=== PATIENT | female | born 1965 | race African-American/Black ===

== ENCOUNTER 2017-04-13 05:12 | Inpatient (IN) | payer MEDICAID ==
[~2017-04-13] VITALS: Ht 170.2 cm; Wt 89.1 kg
--- NOTE | ~2017-04-13 | EC ---
PATIENT:NAREN HAQUE DATE OF SERVICE: 04/13/17 SEX: F MEDICAL RECORD: [id number] DATE OF : [birth year] LOCATION:[facility] [address] AGE OF PATIENT: 51 ADMISSION DATE: 04/13/17 REFERRING PHYSICIAN: INTERPRETING PHYSICIAN: ASHLEY ARNOLD MD ECHOCARDIOGRAM REPORT ECHO CHARGES 4 ECHO COMPLETE CLINICAL DIAGNOSIS: CANDIDEMIA ECHOCARDIOGRAPHIC MEASUREMENTS (adult normal given) AC root (d.<3.7cm) 3.4 cm LV Septum d (<1.2 cm> 1.0 cm Valve Excursion 2.1 cm LV Septum (systole) 1.6 cm Left Atria (s.<4.0cm> 2.7 cm LVPW d(<1.2cm) 1.1 cm RV (d.<2.3cm) 2.7 cm LVPW (sytole) 2.0 cm LV diastole(<5.6CM) 4.9 cm MV E-F(>70mm/sec) cm LV systole 3.4 cm LVOT Diameter 1.9 cm MV exc.(>10mm) cm Est.ejection fraction (50-75%) % Pericardial Effusion N DOPPLER: LVIT cm/sec A 135 cm/sec E 79.0 cm/sec LA cm/sec RVSP mmHg LVOT 137 cm/sec AOP1/2T m/s Asc. Ao 173 cm/sec RVOT 72.0 cm/sec RA cm/sec PA 121 cm/sec AV Gradient Peak 12.0 mmHg AV Mean 6.4 mmHg AV Area 1.8 cm MV Gradient Peak 7.2 mmHg MV Mean 2.9 mmHg MV Area cm COMMENTS: Grinder Hardboard: 1 JULIO BLUFFTON Electrical Repairer: 4 Dr. Arnold TAPE# PACS DATE OF SERVICE: 04/16/2017 FINDINGS: 1. Left ventricle shows evidence of mild left ventricular hypertrophy. Ejection fraction is 55%. 2. The right atrium is normal size and normal function. 3. The left atrium is normal size and normal function. 4. The aortic valve is normal. 5. The mitral valve is normal. 6. The tricuspid valve is normal. ECHOCARDIOGRAM REPORT [id number] NAREN HAQUE 7. The pericardium is normal. 8. Pulmonic valve is grossly normal. 9. The right atrium is normal. CONCLUSION: The patient has a normal echocardiogram. There is no obvious vegetation or thrombus seen, but the endocardial surfaces were not well visualized. TRANSINT:[id number] Voice Confirmation ID: [id number] DOCUMENT ID: [id number] 04/23/2017 Edited to correct date of service, dmm. ASHLEY ARNOLD MD at 0942 CC: [id number] DICTATION DATE: 04/17/17 0749 LIVESTOCK SLAUGHTERER: 04/17/17 0803 ADM IN [place] [id number] [place] [address]
[2017-04-13 05:38] VITALS: BP 151/84; BMI 37.5
[2017-04-13 06:12] LABS: BASOPHILS 0.2 % (0-2); EOSINOPHILS 2.7 % (0-7); HEMATOCRIT 29.3 % (36.0-48.0); HEMOGLOBIN 9.5 g/dL (12-16); IMMATURE GRANULOCYTES 0.8 % (0-5); MCH 28.8 pg (26.0-34.0); MCHC 32.4 g/dL (31.0-37.0); MCV 88.8 fL (80.0-100.0); MEAN PLATELET VOLUME 10.5 fL (7.4-10.4); MONOCYTES 7.2 % (2-11); NEUTROPHILS 67.1 % (40-80); PLATELET COUNT 403 10x3/uL (130-400); RDW 14.8 % (11.5-14.5); WBC 12.4 10x3/uL (4.8-10.8)
[2017-04-13 06:30] LABS: ALBUMIN 2.7 g/dL (3.4-5.0); ALKALINE PHOSPHATASE 91 U/L (46-116); ALT (SGPT) 81 U/L (10-68); BILIRUBIN - TOTAL 0.57 mg/dL (0.2-1.3); CALC OSMOLALITY 280 mosm/kg (275-300); CALCIUM 9.1 mg/dL (8.5-10.1); CARBON DIOXIDE 25.8 mmol/L (21.0-32.0); CHLORIDE - SERUM 104 mmol/L (98-107); CREATININE - SERUM 0.7 mg/dL (0.6-1.3); GLUCOSE 100 mg/dL (74-106); MAGNESIUM - SERUM 1.8 mg/dL (1.8-2.4); PHOSPHOROUS 2.9 mg/dL (2.5-4.9); POTASSIUM - SERUM 4.2 mmol/L (3.5-5.1); PROTEIN - SERUM 7.2 g/dL (6.4-8.2); SODIUM 139 mmol/L (136-145); UREA NITROGEN 20 mg/dL (7-18); eGFR NON AFRICAN AMERICAN > 90 mL/min (90-120)
[2017-04-13] MEDS ORDERED: ZOLOFT50 MG PO (09:06)
[2017-04-13] MEDS ORDERED: CATAPRES0.2 MG PO (09:07)
[2017-04-13] MEDS ORDERED: TRAZODONE HCL50 MG PO (09:15)
[2017-04-13] MEDS ORDERED: VALIUM 2 MG TAB2 MG PO (09:16)
[2017-04-13] MEDS ORDERED: IBUPROFEN800 MG PO (09:17)
[2017-04-13] MEDS ORDERED: ARICEPT10 MG PO (09:17)
[2017-04-13] MEDS ORDERED: FERROUS SULFAT325 MG PO (09:18)
[2017-04-13] MEDS ORDERED: NIFEDIPINE ER60 MG PO (09:18)
[2017-04-13] MEDS ORDERED: COZAAR100 MG PO (09:19)
[2017-04-13 11:48] LABS: APPEARANCE HAZY (CLEAR); BILIRUBIN NEGATIVE (NEGATIVE); COLOR YELLOW (YELLOW); GLUCOSE NEGATIVE (NEGATIVE); KETONE NEGATIVE (NEGATIVE); NITRITE NEGATIVE (NEGATIVE); PROTEIN 2+ mg/dL (NEGATIVE); UROBILINOGEN NORMAL (NORMAL)
[2017-04-13 11:49] LABS: WHITE CELLS - URINE 0-5 /hpf (0-5)
[2017-04-13 11:50] LABS: BACTERIA MODERATE /hpf (NONE SEEN); EPITHELIAL CELLS 0-5 /hpf (0-5); MUCUS <1+ /lpf (NONE SEEN)
[2017-04-13 12:23] VITALS: BP 122/93
[2017-04-13 16:11] VITALS: BP 116/74
[2017-04-13 20:00] VITALS: BP 118/72
[2017-04-14] VITALS: BP 126/76
[2017-04-14 04:00] VITALS: BP 140/87
[2017-04-14 06:26] LABS: BASOPHILS 0.3 % (0-2); EOSINOPHILS 3.4 % (0-7); HEMOGLOBIN 9.1 g/dL (12-16); IMMATURE GRANULOCYTES 1.4 % (0-5); LYMPHOCYTES 22.7 % (15-50); MCH 29.4 pg (26.0-34.0); MCHC 32.5 g/dL (31.0-37.0); MCV 90.3 fL (80.0-100.0); MEAN PLATELET VOLUME 10.2 fL (7.4-10.4); MONOCYTES 8.6 % (2-11); NEUTROPHILS 63.6 % (40-80); PLATELET COUNT 435 10x3/uL (130-400); WBC 10.6 10x3/uL (4.8-10.8)
[2017-04-14 07:03] LABS: ALBUMIN 2.6 g/dL (3.4-5.0); ALKALINE PHOSPHATASE 83 U/L (46-116); ALT (SGPT) 74 U/L (10-68); CALC OSMOLALITY 279 mosm/kg (275-300); CALCIUM 8.9 mg/dL (8.5-10.1); CARBON DIOXIDE 27.6 mmol/L (21.0-32.0); CHLORIDE - SERUM 103 mmol/L (98-107); CREATININE - SERUM 0.8 mg/dL (0.6-1.3); GLUCOSE 86 mg/dL (74-106); PROTEIN - SERUM 7.2 g/dL (6.4-8.2); SODIUM 139 mmol/L (136-145); UREA NITROGEN 20 mg/dL (7-18); eGFR NON AFRICAN AMERICAN 79 mL/min (90-120)
[2017-04-14 08:04] VITALS: BP 127/67
[2017-04-14 12:11] VITALS: BP 134/94
[2017-04-14 15:14] VITALS: BMI 37.4
[2017-04-14 16:24] VITALS: BP 111/79
[2017-04-14 22:08] VITALS: BP 99/73
[2017-04-15 04:55] VITALS: BP 115/92
[2017-04-15 07:02] LABS: ALBUMIN 2.7 g/dL (3.4-5.0); ALKALINE PHOSPHATASE 82 U/L (46-116); ALT (SGPT) 74 U/L (10-68); CALC OSMOLALITY 279 mosm/kg (275-300); CALCIUM 8.7 mg/dL (8.5-10.1); CARBON DIOXIDE 23.1 mmol/L (21.0-32.0); CHLORIDE - SERUM 104 mmol/L (98-107); CREATININE - SERUM 0.8 mg/dL (0.6-1.3); GLUCOSE 113 mg/dL (74-106); POTASSIUM - SERUM 4.3 mmol/L (3.5-5.1); PROTEIN - SERUM 7.1 g/dL (6.4-8.2); SODIUM 138 mmol/L (136-145); UREA NITROGEN 22 mg/dL (7-18); eGFR NON AFRICAN AMERICAN 79 mL/min (90-120)
[2017-04-15 07:12] LABS: BASOPHILS 0.4 % (0-2); EOSINOPHILS 3.8 % (0-7); HEMATOCRIT 30.2 % (36.0-48.0); HEMOGLOBIN 9.7 g/dL (12-16); IMMATURE GRANULOCYTES 2.3 % (0-5); LYMPHOCYTES 16.2 % (15-50); MCH 29.2 pg (26.0-34.0); MCHC 32.1 g/dL (31.0-37.0); MEAN PLATELET VOLUME 10.1 fL (7.4-10.4); MONOCYTES 7.7 % (2-11); NEUTROPHILS 69.6 % (40-80); PLATELET COUNT 502 10x3/uL (130-400); RBC 3.32 10x6/uL (4.00-5.40); RDW 15.2 % (11.5-14.5); WBC 11.2 10x3/uL (4.8-10.8)
[2017-04-15 08:34] VITALS: BP 101/70
[2017-04-15 12:29] VITALS: BP 106/72
[2017-04-15 15:52] VITALS: BP 115/88
[2017-04-15 22:11] VITALS: BP 116/72
[2017-04-16 01:48] VITALS: BP 110/65
[2017-04-16 05:29] VITALS: BP 143/89
[2017-04-16 06:20] LABS: BASOPHILS 0.3 % (0-2); EOSINOPHILS 3.6 % (0-7); HEMATOCRIT 31.2 % (36.0-48.0); HEMOGLOBIN 9.9 g/dL (12-16); IMMATURE GRANULOCYTES 3.6 % (0-5); LYMPHOCYTES 16.8 % (15-50); MCH 29.3 pg (26.0-34.0); MCHC 31.7 g/dL (31.0-37.0); MCV 92.3 fL (80.0-100.0); MEAN PLATELET VOLUME 9.9 fL (7.4-10.4); MONOCYTES 7.3 % (2-11); NEUTROPHILS 68.4 % (40-80); PLATELET COUNT 513 10x3/uL (130-400); RBC 3.38 10x6/uL (4.00-5.40); RDW 16.1 % (11.5-14.5); WBC 9.7 10x3/uL (4.8-10.8)
[2017-04-16 06:41] LABS: ALKALINE PHOSPHATASE 96 U/L (46-116); ALT (SGPT) 67 U/L (10-68); CALC OSMOLALITY 283 mosm/kg (275-300); CALCIUM 9.3 mg/dL (8.5-10.1); CARBON DIOXIDE 24.8 mmol/L (21.0-32.0); CHLORIDE - SERUM 106 mmol/L (98-107); CREATININE - SERUM 0.7 mg/dL (0.6-1.3); GLUCOSE 124 mg/dL (74-106); POTASSIUM - SERUM 4.1 mmol/L (3.5-5.1); SODIUM 140 mmol/L (136-145); UREA NITROGEN 23 mg/dL (7-18); eGFR NON AFRICAN AMERICAN > 90 mL/min (90-120)
[2017-04-16 08:34] VITALS: BP 132/82
[2017-04-16 12:08] VITALS: BP 99/56
[2017-04-16 15:49] VITALS: BP 114/68
[2017-04-16 22:19] VITALS: BP 114/77
[2017-04-17 02:32] VITALS: BP 132/82
[2017-04-17 04:40] VITALS: BP 133/83
[2017-04-17 05:51] LABS: ALBUMIN 2.8 g/dL (3.4-5.0); ALKALINE PHOSPHATASE 88 U/L (46-116); ALT (SGPT) 65 U/L (10-68); CALC OSMOLALITY 279 mosm/kg (275-300); CALCIUM 8.7 mg/dL (8.5-10.1); CARBON DIOXIDE 24.6 mmol/L (21.0-32.0); CHLORIDE - SERUM 104 mmol/L (98-107); CREATININE - SERUM 0.6 mg/dL (0.6-1.3); GLUCOSE 118 mg/dL (74-106); POTASSIUM - SERUM 3.6 mmol/L (3.5-5.1); PROTEIN - SERUM 7.2 g/dL (6.4-8.2); SODIUM 138 mmol/L (136-145); UREA NITROGEN 20 mg/dL (7-18); eGFR NON AFRICAN AMERICAN > 90 mL/min (90-120)
[2017-04-17 05:52] LABS: BASOPHILS 0.3 % (0-2); EOSINOPHILS 4.4 % (0-7); HEMATOCRIT 30.5 % (36.0-48.0); HEMOGLOBIN 9.8 g/dL (12-16); IMMATURE GRANULOCYTES 3.2 % (0-5); LYMPHOCYTES 16.8 % (15-50); MCH 29.1 pg (26.0-34.0); MCHC 32.1 g/dL (31.0-37.0); MCV 90.5 fL (80.0-100.0); MEAN PLATELET VOLUME 10.5 fL (7.4-10.4); MONOCYTES 7.5 % (2-11); NEUTROPHILS 67.8 % (40-80); PLATELET COUNT 418 10x3/uL (130-400); RBC 3.37 10x6/uL (4.00-5.40); RDW 16.1 % (11.5-14.5); WBC 11.7 10x3/uL (4.8-10.8)
[2017-04-17 09:58] VITALS: BP 129/69
[2017-04-17 12:49] VITALS: BP 134/88
[2017-04-17 15:57] VITALS: BP 116/72
[2017-04-17 21:58] VITALS: BP 124/66
[2017-04-18 00:11] VITALS: BP 124/64
[2017-04-18 05:03] LABS: BASOPHILS 0.3 % (0-2); EOSINOPHILS 3.2 % (0-7); HEMATOCRIT 27.2 % (36.0-48.0); HEMOGLOBIN 9.5 g/dL (12-16); IMMATURE GRANULOCYTES 1.7 % (0-5); LYMPHOCYTES 16.2 % (15-50); MCHC 34.9 g/dL (31.0-37.0); MCV 91.6 fL (80.0-100.0); MONOCYTES 7.2 % (2-11); NEUTROPHILS 71.4 % (40-80); PLATELET COUNT 438 10x3/uL (130-400); RBC 2.97 10x6/uL (4.00-5.40); RDW 16.4 % (11.5-14.5); WBC 13.9 10x3/uL (4.8-10.8)
[2017-04-18 05:16] VITALS: BP 132/54
[2017-04-18 05:23] LABS: ALBUMIN 2.6 g/dL (3.4-5.0); ALKALINE PHOSPHATASE 86 U/L (46-116); ALT (SGPT) 65 U/L (10-68); BILIRUBIN - TOTAL 0.32 mg/dL (0.2-1.3); CALC OSMOLALITY 273 mosm/kg (275-300); CALCIUM 8.7 mg/dL (8.5-10.1); CARBON DIOXIDE 21.5 mmol/L (21.0-32.0); CHLORIDE - SERUM 104 mmol/L (98-107); CREATININE - SERUM 0.6 mg/dL (0.6-1.3); GLUCOSE 96 mg/dL (74-106); POTASSIUM - SERUM 4.1 mmol/L (3.5-5.1); PROTEIN - SERUM 7.1 g/dL (6.4-8.2); SODIUM 136 mmol/L (136-145); UREA NITROGEN 18 mg/dL (7-18); eGFR NON AFRICAN AMERICAN > 90 mL/min (90-120)
[2017-04-18 08:39] VITALS: BP 99/70
[2017-04-18 13:14] VITALS: BP 102/75
[2017-04-18 16:48] VITALS: BP 110/70
[2017-04-18 18:36] LABS: APPEARANCE CLEAR (CLEAR); BILIRUBIN NEGATIVE (NEGATIVE); COLOR YELLOW (YELLOW); GLUCOSE NEGATIVE (NEGATIVE); KETONE NEGATIVE (NEGATIVE); NITRITE NEGATIVE (NEGATIVE); PROTEIN TRACE mg/dL (NEGATIVE); UROBILINOGEN NORMAL (NORMAL)
[2017-04-18 18:37] LABS: BACTERIA FEW /hpf (NONE SEEN); EPITHELIAL CELLS 0-5 /hpf (0-5); RED CELLS - URINE 0-5 /hpf (0-5)
[2017-04-18 21:35] VITALS: BP 113/79
[2017-04-19 00:45] VITALS: BP 122/77
[2017-04-19 04:54] VITALS: BP 105/78
[2017-04-19 08:12] VITALS: BP 103/71
[2017-04-19 09:00] LABS: BASOPHILS 0.2 % (0-2); EOSINOPHILS 2.9 % (0-7); HEMOGLOBIN 10.7 g/dL (12-16); IMMATURE GRANULOCYTES 0.7 % (0-5); LYMPHOCYTES 8.8 % (15-50); MCH 29.6 pg (26.0-34.0); MCHC 32.4 g/dL (31.0-37.0); MCV 91.2 fL (80.0-100.0); MEAN PLATELET VOLUME 9.5 fL (7.4-10.4); MONOCYTES 4.4 % (2-11); RDW 16.1 % (11.5-14.5); WBC 14.3 10x3/uL (4.8-10.8)
[2017-04-19 09:06] LABS: PLATELET COUNT 605 10x3/uL (130-400); RBC 3.62 10x6/uL (4.00-5.40)
[2017-04-19 09:17] LABS: ALBUMIN 3.1 g/dL (3.4-5.0); ALKALINE PHOSPHATASE 106 U/L (46-116); ALT (SGPT) 71 U/L (10-68); BILIRUBIN - TOTAL 0.28 mg/dL (0.2-1.3); CALC OSMOLALITY 280 mosm/kg (275-300); CALCIUM 9.3 mg/dL (8.5-10.1); CARBON DIOXIDE 24.4 mmol/L (21.0-32.0); CHLORIDE - SERUM 103 mmol/L (98-107); CREATININE - SERUM 0.7 mg/dL (0.6-1.3); GLUCOSE 118 mg/dL (74-106); MAGNESIUM - SERUM 1.8 mg/dL (1.8-2.4); PHOSPHOROUS 3.1 mg/dL (2.5-4.9); POTASSIUM - SERUM 3.7 mmol/L (3.5-5.1); PROTEIN - SERUM 8.2 g/dL (6.4-8.2); SODIUM 139 mmol/L (136-145); UREA NITROGEN 17 mg/dL (7-18); eGFR NON AFRICAN AMERICAN > 90 mL/min (90-120)
[2017-04-19 12:23] VITALS: BP 99/78
[2017-04-19 14:14] VITALS: Ht 170.2 cm; Wt 89.1 kg
[2017-04-19 16:02] VITALS: BP 94/56
[2017-04-19 20:31] VITALS: BP 67/45
[2017-04-20 01:49] VITALS: BP 97/49
[2017-04-20 04:57] VITALS: BP 114/70
[2017-04-20 06:44] LABS: HEMATOCRIT 29.6 % (36.0-48.0); HEMOGLOBIN 9.7 g/dL (12-16); MCHC 32.8 g/dL (31.0-37.0); MCV 91.6 fL (80.0-100.0); MEAN PLATELET VOLUME 9.5 fL (7.4-10.4); PLATELET COUNT 427 10x3/uL (130-400); RBC 3.23 10x6/uL (4.00-5.40); RDW 16.5 % (11.5-14.5); WBC 20.7 10x3/uL (4.8-10.8)
[2017-04-20 06:48] LABS: CALC OSMOLALITY 281 mosm/kg (275-300); CALCIUM 8.6 mg/dL (8.5-10.1); CARBON DIOXIDE 22.5 mmol/L (21.0-32.0); CHLORIDE - SERUM 105 mmol/L (98-107); CREATININE - SERUM 0.7 mg/dL (0.6-1.3); GLUCOSE 108 mg/dL (74-106); POTASSIUM - SERUM 4.4 mmol/L (3.5-5.1); SODIUM 139 mmol/L (136-145); UREA NITROGEN 21 mg/dL (7-18); eGFR NON AFRICAN AMERICAN > 90 mL/min (90-120)
[2017-04-20 07:05] LABS: EOSINOPHILS 1 % (0-7); LYMPHOCYTES 11 % (15-50); MONOCYTES 2 % (2-11); NEUTROPHILS 81 % (40-80); PLATELET ESTIMATE NORMAL
[2017-04-20 08:31] VITALS: BP 115/77
[2017-04-20 11:44] VITALS: BP 117/79
[2017-04-20 15:50] VITALS: BP 132/70
[2017-04-20 22:00] VITALS: BP 103/72
[2017-04-21 01:42] VITALS: BP 111/73
[2017-04-21 05:38] LABS: BASOPHILS 0 % (0-2); EOSINOPHILS 0 % (0-7); HEMATOCRIT 29.9 % (36.0-48.0); HEMOGLOBIN 9.6 g/dL (12-16); IMMATURE GRANULOCYTES 0.5 % (0-5); LYMPHOCYTES 3.9 % (15-50); MCH 29.2 pg (26.0-34.0); MCHC 32.1 g/dL (31.0-37.0); MCV 90.9 fL (80.0-100.0); MEAN PLATELET VOLUME 9.5 fL (7.4-10.4); MONOCYTES 0.8 % (2-11); NEUTROPHILS 94.8 % (40-80); PLATELET COUNT 540 10x3/uL (130-400); RBC 3.29 10x6/uL (4.00-5.40); RDW 16.1 % (11.5-14.5); WBC 22.9 10x3/uL (4.8-10.8)
[2017-04-21 05:55] VITALS: BP 113/74
[2017-04-21 06:00] LABS: CALC OSMOLALITY 288 mosm/kg (275-300); CALCIUM 9.4 mg/dL (8.5-10.1); CARBON DIOXIDE 22.7 mmol/L (21.0-32.0); CHLORIDE - SERUM 106 mmol/L (98-107); CREATININE - SERUM 0.8 mg/dL (0.6-1.3); GLUCOSE 194 mg/dL (74-106); MAGNESIUM - SERUM 1.9 mg/dL (1.8-2.4); PHOSPHOROUS 3.1 mg/dL (2.5-4.9); POTASSIUM - SERUM 3.4 mmol/L (3.5-5.1); SODIUM 141 mmol/L (136-145); UREA NITROGEN 22 mg/dL (7-18); eGFR NON AFRICAN AMERICAN 79 mL/min (90-120)
[2017-04-21 09:26] VITALS: BP 102/60
[2017-04-21 12:43] VITALS: BP 100/58
[2017-04-21 17:33] VITALS: BP 124/64
[2017-04-21 21:52] VITALS: BP 100/64
[2017-04-22] VITALS (25 sets, daily range): BP systolic 100–149; BP diastolic 64–109
[2017-04-22 03:27] LABS: APPEARANCE CLOUDY (CLEAR); BILIRUBIN NEGATIVE (NEGATIVE); COLOR YELLOW (YELLOW); GLUCOSE NEGATIVE (NEGATIVE); KETONE NEGATIVE (NEGATIVE); NITRITE NEGATIVE (NEGATIVE); PROTEIN 1+ mg/dL (NEGATIVE); SPECIFIC GRAVITY 1.015 (1.005-1.020); UROBILINOGEN NORMAL (NORMAL)
[2017-04-22 03:29] LABS: BACTERIA MODERATE /hpf (NONE SEEN); EPITHELIAL CELLS 0-5 /hpf (0-5)
[2017-04-22 04:55] LABS: CALCIUM 9.1 mg/dL (8.5-10.1); CARBON DIOXIDE 19.8 mmol/L (21.0-32.0); CHLORIDE - SERUM 108 mmol/L (98-107); CREATININE - SERUM 0.7 mg/dL (0.6-1.3); GLUCOSE 175 mg/dL (74-106); SODIUM 144 mmol/L (136-145); eGFR NON AFRICAN AMERICAN > 90 mL/min (90-120)
[2017-04-22 04:58] LABS: CALC OSMOLALITY 297 mosm/kg (275-300); UREA NITROGEN 32 mg/dL (7-18)
[2017-04-22 07:24] LABS: HEMATOCRIT 31.3 % (36.0-48.0); HEMOGLOBIN 10.2 g/dL (12-16); LYMPHOCYTES 3.6 % (15-50); MCHC 32.6 g/dL (31.0-37.0); MCV 92.1 fL (80.0-100.0); MEAN PLATELET VOLUME 9.3 fL (7.4-10.4); NEUTROPHILS 91.7 % (40-80); PLATELET COUNT 467 10x3/uL (130-400); RDW 16.5 % (11.5-14.5); WBC 28.5 10x3/uL (4.8-10.8)
[2017-04-23] VITALS (24 sets, daily range): BP systolic 101–156; BP diastolic 73–104
[2017-04-23 04:45] LABS: BASOPHILS 0 % (0-2); EOSINOPHILS 0 % (0-7); HEMATOCRIT 33.7 % (36.0-48.0); HEMOGLOBIN 10.7 g/dL (12-16); IMMATURE GRANULOCYTES 1.4 % (0-5); LYMPHOCYTES 4.4 % (15-50); MCH 29.4 pg (26.0-34.0); MCHC 31.8 g/dL (31.0-37.0); MCV 92.6 fL (80.0-100.0); MEAN PLATELET VOLUME 9.8 fL (7.4-10.4); MONOCYTES 1.9 % (2-11); NEUTROPHILS 92.3 % (40-80); PLATELET COUNT 435 10x3/uL (130-400); RBC 3.64 10x6/uL (4.00-5.40); RDW 16.2 % (11.5-14.5)
[2017-04-23 05:07] LABS: ANION GAP 20.6 mmol/L (8-16); CALCIUM 8.8 mg/dL (8.5-10.1); POTASSIUM - SERUM 3.6 mmol/L (3.5-5.1)
[2017-04-23 05:08] LABS: CREATININE - SERUM 0.9 mg/dL (0.6-1.3)
[2017-04-24] VITALS (24 sets, daily range): BP systolic 122–163; BP diastolic 76–104
[2017-04-24 04:32] LABS: BASOPHILS 0.1 % (0-2); EOSINOPHILS 0 % (0-7); HEMATOCRIT 27.4 % (36.0-48.0); HEMOGLOBIN 8.7 g/dL (12-16); IMMATURE GRANULOCYTES 4.5 % (0-5); LYMPHOCYTES 5.5 % (15-50); MCHC 31.8 g/dL (31.0-37.0); MCV 91.3 fL (80.0-100.0); MEAN PLATELET VOLUME 9.7 fL (7.4-10.4); MONOCYTES 2.6 % (2-11); NEUTROPHILS 87.3 % (40-80); PLATELET COUNT 365 10x3/uL (130-400); RDW 15.9 % (11.5-14.5); WBC 17.7 10x3/uL (4.8-10.8)
[2017-04-24 04:46] LABS: CALC OSMOLALITY 294 mosm/kg (275-300); CALCIUM 8.3 mg/dL (8.5-10.1); CARBON DIOXIDE 20.6 mmol/L (21.0-32.0); CHLORIDE - SERUM 110 mmol/L (98-107); CREATININE - SERUM 0.7 mg/dL (0.6-1.3); GLUCOSE 120 mg/dL (74-106); POTASSIUM - SERUM 3.8 mmol/L (3.5-5.1); SODIUM 144 mmol/L (136-145); UREA NITROGEN 33 mg/dL (7-18); eGFR NON AFRICAN AMERICAN > 90 mL/min (90-120)
[2017-04-25] VITALS (24 sets, daily range): BP systolic 99–165; BP diastolic 70–111
[2017-04-25 03:43] LABS: CALC OSMOLALITY 297 mosm/kg (275-300); CALCIUM 8.3 mg/dL (8.5-10.1); CARBON DIOXIDE 23.6 mmol/L (21.0-32.0); CHLORIDE - SERUM 112 mmol/L (98-107); CREATININE - SERUM 0.7 mg/dL (0.6-1.3); GLUCOSE 164 mg/dL (74-106); MAGNESIUM - SERUM 2.2 mg/dL (1.8-2.4); POTASSIUM - SERUM 3.8 mmol/L (3.5-5.1); SODIUM 144 mmol/L (136-145); UREA NITROGEN 32 mg/dL (7-18); eGFR NON AFRICAN AMERICAN > 90 mL/min (90-120)
[2017-04-25 03:46] LABS: BASOPHILS 0.2 % (0-2); EOSINOPHILS 0 % (0-7); HEMATOCRIT 30.2 % (36.0-48.0); HEMOGLOBIN 9.6 g/dL (12-16); IMMATURE GRANULOCYTES 8.4 % (0-5); LYMPHOCYTES 4.7 % (15-50); MCH 29.2 pg (26.0-34.0); MCHC 31.8 g/dL (31.0-37.0); MCV 91.8 fL (80.0-100.0); MEAN PLATELET VOLUME 9.6 fL (7.4-10.4); MONOCYTES 4.5 % (2-11); NEUTROPHILS 82.2 % (40-80); PLATELET COUNT 345 10x3/uL (130-400); RBC 3.29 10x6/uL (4.00-5.40); RDW 15.9 % (11.5-14.5); WBC 21.2 10x3/uL (4.8-10.8)
[2017-04-26] VITALS (24 sets, daily range): BP systolic 123–184; BP diastolic 87–134
[2017-04-26 04:29] LABS: BASOPHILS 0.3 % (0-2); EOSINOPHILS 0 % (0-7); HEMOGLOBIN 9.3 g/dL (12-16); IMMATURE GRANULOCYTES 8.1 % (0-5); LYMPHOCYTES 6.3 % (15-50); MCH 29.1 pg (26.0-34.0); MCV 93.8 fL (80.0-100.0); MEAN PLATELET VOLUME 9.6 fL (7.4-10.4); MONOCYTES 8.2 % (2-11); NEUTROPHILS 77.1 % (40-80); PLATELET COUNT 305 10x3/uL (130-400); RDW 16.4 % (11.5-14.5); WBC 22.5 10x3/uL (4.8-10.8)
[2017-04-26 04:35] LABS: CALCIUM 8.1 mg/dL (8.5-10.1); CARBON DIOXIDE 25.9 mmol/L (21.0-32.0); CHLORIDE - SERUM 113 mmol/L (98-107); MAGNESIUM - SERUM 2.3 mg/dL (1.8-2.4); POTASSIUM - SERUM 4.1 mmol/L (3.5-5.1); SODIUM 145 mmol/L (136-145); UREA NITROGEN 30 mg/dL (7-18)
[2017-04-26 04:44] LABS: CALC OSMOLALITY 295 mosm/kg (275-300); CREATININE - SERUM 0.5 mg/dL (0.6-1.3); GLUCOSE 114 mg/dL (74-106); eGFR NON AFRICAN AMERICAN > 90 mL/min (90-120)
[2017-04-27] VITALS (25 sets, daily range): BP systolic 121–160; BP diastolic 75–109
[2017-04-27 04:20] LABS: BASOPHILS 0.2 % (0-2); EOSINOPHILS 0 % (0-7); HEMATOCRIT 30.9 % (36.0-48.0); HEMOGLOBIN 9.6 g/dL (12-16); IMMATURE GRANULOCYTES 8.1 % (0-5); LYMPHOCYTES 5.6 % (15-50); MCH 29.4 pg (26.0-34.0); MCHC 31.1 g/dL (31.0-37.0); MCV 94.8 fL (80.0-100.0); MEAN PLATELET VOLUME 9.9 fL (7.4-10.4); MONOCYTES 4.2 % (2-11); NEUTROPHILS 81.9 % (40-80); PLATELET COUNT 255 10x3/uL (130-400); RBC 3.26 10x6/uL (4.00-5.40); RDW 16.5 % (11.5-14.5); WBC 19.6 10x3/uL (4.8-10.8)
[2017-04-27 04:35] LABS: CALC OSMOLALITY 293 mosm/kg (275-300); CALCIUM 8.2 mg/dL (8.5-10.1); CARBON DIOXIDE 24.3 mmol/L (21.0-32.0); CHLORIDE - SERUM 112 mmol/L (98-107); CREATININE - SERUM 0.5 mg/dL (0.6-1.3); GLUCOSE 158 mg/dL (74-106); MAGNESIUM - SERUM 2.2 mg/dL (1.8-2.4); POTASSIUM - SERUM 4.6 mmol/L (3.5-5.1); SODIUM 143 mmol/L (136-145); UREA NITROGEN 30 mg/dL (7-18); eGFR NON AFRICAN AMERICAN > 90 mL/min (90-120)
[2017-04-28] VITALS (12 sets, daily range): BP systolic 122–180; BP diastolic 74–125
[2017-04-28 05:13] LABS: HEMOGLOBIN 9.8 g/dL (12-16); RBC 3.35 10x6/uL (4.00-5.40); WBC 22.8 10x3/uL (4.8-10.8)
[2017-04-28 05:14] LABS: BASOPHILS 0.1 % (0-2); EOSINOPHILS 0 % (0-7); IMMATURE GRANULOCYTES 6.1 % (0-5); LYMPHOCYTES 4.6 % (15-50); MCH 29.3 pg (26.0-34.0); MCHC 31.6 g/dL (31.0-37.0); MCV 92.5 fL (80.0-100.0); MEAN PLATELET VOLUME 10.4 fL (7.4-10.4); MONOCYTES 4.4 % (2-11); NEUTROPHILS 84.8 % (40-80); PLATELET COUNT 299 10x3/uL (130-400); RDW 15.8 % (11.5-14.5)
[2017-04-28 05:27] LABS: CALC OSMOLALITY 289 mosm/kg (275-300); CARBON DIOXIDE 26.2 mmol/L (21.0-32.0); CHLORIDE - SERUM 107 mmol/L (98-107); CREATININE - SERUM 0.5 mg/dL (0.6-1.3); GLUCOSE 147 mg/dL (74-106); MAGNESIUM - SERUM 2.2 mg/dL (1.8-2.4); SODIUM 141 mmol/L (136-145); UREA NITROGEN 29 mg/dL (7-18); eGFR NON AFRICAN AMERICAN > 90 mL/min (90-120)
[2017-04-28 05:32] LABS: POTASSIUM - SERUM 3.9 mmol/L (3.5-5.1)
[2017-04-29 04:00] VITALS: BP 130/86
[2017-04-29 06:12] LABS: BASOPHILS 0.2 % (0-2); EOSINOPHILS 1.2 % (0-7); HEMATOCRIT 34.1 % (36.0-48.0); HEMOGLOBIN 10.9 g/dL (12-16); IMMATURE GRANULOCYTES 7.1 % (0-5); LYMPHOCYTES 11.7 % (15-50); MCH 29.7 pg (26.0-34.0); MCV 92.9 fL (80.0-100.0); MEAN PLATELET VOLUME 10.7 fL (7.4-10.4); MONOCYTES 5.2 % (2-11); NEUTROPHILS 74.6 % (40-80); PLATELET COUNT 204 10x3/uL (130-400); RBC 3.67 10x6/uL (4.00-5.40); RDW 16.4 % (11.5-14.5); WBC 22.1 10x3/uL (4.8-10.8)
[2017-04-29 06:14] LABS: CALC OSMOLALITY 277 mosm/kg (275-300); CALCIUM 8.5 mg/dL (8.5-10.1); CARBON DIOXIDE 22.7 mmol/L (21.0-32.0); CHLORIDE - SERUM 104 mmol/L (98-107); CREATININE - SERUM 0.4 mg/dL (0.6-1.3); GLUCOSE 103 mg/dL (74-106); MAGNESIUM - SERUM 1.8 mg/dL (1.8-2.4); POTASSIUM - SERUM 4.2 mmol/L (3.5-5.1); SODIUM 136 mmol/L (136-145); UREA NITROGEN 30 mg/dL (7-18); eGFR NON AFRICAN AMERICAN > 90 mL/min (90-120)
[2017-04-29 08:13] VITALS: BP 130/79
[2017-04-29 12:53] VITALS: BP 126/83
[2017-04-29 16:18] VITALS: BP 147/85
[2017-04-29 20:00] VITALS: BP 128/70
[2017-04-30 04:00] VITALS: BP 125/84
[2017-04-30 08:00] VITALS: BP 136/91
[2017-04-30 12:09] VITALS: BP 131/96
[2017-04-30 16:50] VITALS: BP 122/85
[2017-04-30 20:00] VITALS: BP 133/81
[2017-05-01] VITALS: BP 109/75
[2017-05-01 04:00] VITALS: BP 134/74
[2017-05-01 04:45] LABS: BASOPHILS 0.1 % (0-2); EOSINOPHILS 1.8 % (0-7); HEMATOCRIT 32.5 % (36.0-48.0); HEMOGLOBIN 10.6 g/dL (12-16); IMMATURE GRANULOCYTES 4.2 % (0-5); LYMPHOCYTES 17.8 % (15-50); MCH 29.6 pg (26.0-34.0); MCHC 32.6 g/dL (31.0-37.0); MEAN PLATELET VOLUME 10.4 fL (7.4-10.4); MONOCYTES 4.9 % (2-11); NEUTROPHILS 71.2 % (40-80); PLATELET COUNT 197 10x3/uL (130-400); RBC 3.58 10x6/uL (4.00-5.40); RDW 16.9 % (11.5-14.5)
[2017-05-01 04:49] LABS: MCV 90.8 fL (80.0-100.0)
[2017-05-01 05:11] LABS: CALCIUM 8.5 mg/dL (8.5-10.1); CARBON DIOXIDE 24.5 mmol/L (21.0-32.0); CHLORIDE - SERUM 103 mmol/L (98-107); CREATININE - SERUM 0.5 mg/dL (0.6-1.3); GLUCOSE 112 mg/dL (74-106); SODIUM 137 mmol/L (136-145); eGFR NON AFRICAN AMERICAN > 90 mL/min (90-120)
[2017-05-01 05:20] LABS: CALC OSMOLALITY 277 mosm/kg (275-300); POTASSIUM - SERUM 3.5 mmol/L (3.5-5.1); UREA NITROGEN 22 mg/dL (7-18)
[2017-05-01 08:08] VITALS: BP 134/92
[2017-05-01 11:43] VITALS: BP 122/98
[2017-05-01 15:41] VITALS: BP 133/89
[2017-05-01 20:00] VITALS: BP 128/81
[2017-05-02] VITALS: BP 133/70
[2017-05-02 04:00] VITALS: BP 148/88
[2017-05-02 07:15] LABS: CALC OSMOLALITY 275 mosm/kg (275-300); CALCIUM 8.9 mg/dL (8.5-10.1); CARBON DIOXIDE 26.4 mmol/L (21.0-32.0); CHLORIDE - SERUM 102 mmol/L (98-107); CREATININE - SERUM 0.5 mg/dL (0.6-1.3); GLUCOSE 114 mg/dL (74-106); SODIUM 136 mmol/L (136-145); UREA NITROGEN 21 mg/dL (7-18); eGFR NON AFRICAN AMERICAN > 90 mL/min (90-120)
[2017-05-02 07:23] LABS: BASOPHILS 0 % (0-2); HEMATOCRIT 33.6 % (36.0-48.0); HEMOGLOBIN 10.7 g/dL (12-16); IMMATURE GRANULOCYTES 2.5 % (0-5); LYMPHOCYTES 10.9 % (15-50); MCH 29.6 pg (26.0-34.0); MCHC 31.8 g/dL (31.0-37.0); MCV 92.8 fL (80.0-100.0); MEAN PLATELET VOLUME 10.7 fL (7.4-10.4); MONOCYTES 4.2 % (2-11); NEUTROPHILS 79.4 % (40-80); PLATELET COUNT 205 10x3/uL (130-400); RBC 3.62 10x6/uL (4.00-5.40); RDW 17.3 % (11.5-14.5); WBC 20.8 10x3/uL (4.8-10.8)
[2017-05-02 08:12] VITALS: BP 113/76
[2017-05-02 12:30] VITALS: BP 119/86
[2017-05-02 15:58] VITALS: BP 103/79
[2017-05-02 20:00] VITALS: BP 121/78
[2017-05-03] VITALS: BP 134/84
[2017-05-03 04:00] VITALS: BP 119/72
[2017-05-03 05:04] LABS: BASOPHILS 0.1 % (0-2); EOSINOPHILS 3.5 % (0-7); HEMATOCRIT 33.5 % (36.0-48.0); HEMOGLOBIN 10.6 g/dL (12-16); IMMATURE GRANULOCYTES 1.6 % (0-5); LYMPHOCYTES 15.2 % (15-50); MCH 30.1 pg (26.0-34.0); MCHC 31.6 g/dL (31.0-37.0); MEAN PLATELET VOLUME 10.2 fL (7.4-10.4); MONOCYTES 5.3 % (2-11); NEUTROPHILS 74.3 % (40-80); PLATELET COUNT 179 10x3/uL (130-400); RBC 3.52 10x6/uL (4.00-5.40); RDW 17.7 % (11.5-14.5); WBC 17.3 10x3/uL (4.8-10.8)
[2017-05-03 05:11] LABS: MCV 95.2 fL (80.0-100.0)
[2017-05-03 05:24] LABS: CALC OSMOLALITY 277 mosm/kg (275-300); CALCIUM 8.9 mg/dL (8.5-10.1); CARBON DIOXIDE 24.8 mmol/L (21.0-32.0); CHLORIDE - SERUM 102 mmol/L (98-107); CREATININE - SERUM 0.5 mg/dL (0.6-1.3); GLUCOSE 114 mg/dL (74-106); POTASSIUM - SERUM 4.1 mmol/L (3.5-5.1); SODIUM 137 mmol/L (136-145); UREA NITROGEN 20 mg/dL (7-18); eGFR NON AFRICAN AMERICAN > 90 mL/min (90-120)
[2017-05-03 07:06] VITALS: BP 103/85
[2017-05-03 11:04] VITALS: BP 129/91
[2017-05-03 15:11] VITALS: BP 127/92
[2017-05-03 21:12] VITALS: BP 101/67
[2017-05-04 00:59] VITALS: BP 122/70
[2017-05-04 05:05] VITALS: BP 149/90
[2017-05-04 06:26] LABS: BASOPHILS 0.1 % (0-2); EOSINOPHILS 3.1 % (0-7); HEMATOCRIT 32.7 % (36.0-48.0); HEMOGLOBIN 10.4 g/dL (12-16); IMMATURE GRANULOCYTES 1.1 % (0-5); LYMPHOCYTES 14.2 % (15-50); MCH 30.1 pg (26.0-34.0); MCHC 31.8 g/dL (31.0-37.0); MCV 94.5 fL (80.0-100.0); MEAN PLATELET VOLUME 10.6 fL (7.4-10.4); MONOCYTES 5.1 % (2-11); NEUTROPHILS 76.4 % (40-80); PLATELET COUNT 198 10x3/uL (130-400); RBC 3.46 10x6/uL (4.00-5.40)
[2017-05-04 06:45] LABS: CALC OSMOLALITY 275 mosm/kg (275-300); CALCIUM 8.9 mg/dL (8.5-10.1); CARBON DIOXIDE 24.8 mmol/L (21.0-32.0); CHLORIDE - SERUM 102 mmol/L (98-107); CREATININE - SERUM 0.5 mg/dL (0.6-1.3); GLUCOSE 108 mg/dL (74-106); POTASSIUM - SERUM 4.1 mmol/L (3.5-5.1); SODIUM 136 mmol/L (136-145); UREA NITROGEN 20 mg/dL (7-18); eGFR NON AFRICAN AMERICAN > 90 mL/min (90-120)
[2017-05-04 08:18] VITALS: BP 124/84
[2017-05-04 12:40] VITALS: BP 92/63
[2017-05-04 16:22] VITALS: BP 109/75
[2017-05-04 21:31] VITALS: BP 121/83
[2017-05-05 00:50] VITALS: BP 124/84
[2017-05-05 05:43] VITALS: BP 164/84
[2017-05-05 06:14] LABS: BASOPHILS 0.1 % (0-2); EOSINOPHILS 3.2 % (0-7); HEMATOCRIT 36.5 % (36.0-48.0); HEMOGLOBIN 11.6 g/dL (12-16); IMMATURE GRANULOCYTES 0.7 % (0-5); LYMPHOCYTES 15.1 % (15-50); MCH 29.6 pg (26.0-34.0); MCHC 31.8 g/dL (31.0-37.0); MCV 93.1 fL (80.0-100.0); MEAN PLATELET VOLUME 11.1 fL (7.4-10.4); MONOCYTES 5.1 % (2-11); NEUTROPHILS 75.8 % (40-80); PLATELET COUNT 211 10x3/uL (130-400); RBC 3.92 10x6/uL (4.00-5.40); WBC 12.7 10x3/uL (4.8-10.8)
[2017-05-05 06:28] LABS: CALC OSMOLALITY 277 mosm/kg (275-300); CALCIUM 9.1 mg/dL (8.5-10.1); CARBON DIOXIDE 24.7 mmol/L (21.0-32.0); CHLORIDE - SERUM 103 mmol/L (98-107); CREATININE - SERUM 0.6 mg/dL (0.6-1.3); GLUCOSE 113 mg/dL (74-106); POTASSIUM - SERUM 4.1 mmol/L (3.5-5.1); SODIUM 137 mmol/L (136-145); UREA NITROGEN 20 mg/dL (7-18); eGFR NON AFRICAN AMERICAN > 90 mL/min (90-120)
[2017-05-05 07:28] VITALS: BP 123/79
[2017-05-05 11:24] LABS: APPEARANCE SLT CLOUDY (CLEAR); BILIRUBIN NEGATIVE (NEGATIVE); COLOR YELLOW (YELLOW); GLUCOSE NEGATIVE (NEGATIVE); KETONE NEGATIVE (NEGATIVE); NITRITE POSITIVE (NEGATIVE); PROTEIN TRACE mg/dL (NEGATIVE); SPECIFIC GRAVITY 1.005 (1.005-1.020); UROBILINOGEN NORMAL (NORMAL)
[2017-05-05 11:25] LABS: BACTERIA MANY /hpf (NONE SEEN); EPITHELIAL CELLS 0-5 /hpf (0-5); MUCUS <1+ /lpf (NONE SEEN)
[2017-05-05 11:45] VITALS: BP 107/71
[2017-05-05] MEDS ORDERED: NORVASC10 MG PEG (12:41)
[2017-05-05] MEDS ORDERED: GUAIFENESI100 MG/5 M NG (12:41)
[2017-05-05] MEDS ORDERED: PROTONIX FOR OR40 MG PT (12:41)
[2017-05-05] MEDS ORDERED: BACTRIM 400-801 TAB PO (12:41)
[2017-05-05] MEDS ORDERED: ALBUTEROL2.5 MG/3 M UPD (12:41)
[2017-05-05] MEDS ORDERED: ARICEPT10 MG PT (12:41)
[2017-05-05] MEDS ORDERED: TRANSDERM-SCO1 PATCH TRANSDERM (12:41)
[2017-05-05] MEDS ORDERED: LACTINEX GRANUL1 PCK PT (12:41)
[2017-05-05 15:45] VITALS: BP 110/78
== END 2017-05-05 18:30 | DRG 870 ==
LOC: D.MS 05:12 → D.ICU 05:12 → D.MS 04-28 15:49
PROVIDERS: Family Medicine; Internal Medicine Nephrology; Internal Medicine Pulmonary Disease
PROC: 05H633Z Insertion of Infusion Device into Left Subclavian Vein, Percutaneous Approach (ICD-10-PCS; principal; 2017-04-14)
PROC: 5A1955Z Respiratory Ventilation, Greater than 96 Consecutive Hours (ICD-10-PCS; 2017-04-22)
PROC: 0BH17EZ Insertion of Endotracheal Airway into Trachea, Via Natural or Artificial Opening (ICD-10-PCS; 2017-04-22)
PROC: 0BD78ZX Extraction of Left Main Bronchus, Via Natural or Artificial Opening Endoscopic, Diagnostic (ICD-10-PCS; 2017-04-22)
PROC: 0BD38ZX Extraction of Right Main Bronchus, Via Natural or Artificial Opening Endoscopic, Diagnostic (ICD-10-PCS; 2017-04-22)
PROC: 0DJ08ZZ Inspection of Upper Intestinal Tract, Via Natural or Artificial Opening Endoscopic (ICD-10-PCS; 2017-04-22)
PROC: 0DH63UZ Insertion of Feeding Device into Stomach, Percutaneous Approach (ICD-10-PCS; 2017-04-22)
DX: A41.9 Sepsis, unspecified organism (principal); R65.21 Severe sepsis with septic shock; J69.0 Pneumonitis due to inhalation of food and vomit; J96.00 Acute respiratory failure, unspecified whether with hypoxia or hypercapnia; N39.0 Urinary tract infection, site not specified; N17.9 Acute kidney failure, unspecified; B37.89 Other sites of candidiasis; J98.11 Atelectasis; I10 Essential (primary) hypertension; K21.9 Gastro-esophageal reflux disease without esophagitis; F20.9 Schizophrenia, unspecified; G30.0 Alzheimer's disease with early onset; F02.80 Dementia in other diseases classified elsewhere, unspecified severity, without behavioral disturbance, psychotic disturbance, mood disturbance, and anxiety; J39.8 Other specified diseases of upper respiratory tract